=== PATIENT | female | born 1975 | race Caucasian/White ===

== ENCOUNTER 2017-09-13 16:27 | Emergency (ER) | payer BC ==
[2017-09-13] MEDS ORDERED: Metoclopramide IV* 5 MG/ML 2 ML VIAL IV SLOW PU ONE (17:12)
[2017-09-13] MEDS ORDERED: Ketorolac INJ* 30 MG/ML 1 ML VIAL IV PUSH ONE (17:12)
[2017-09-13 19:13] VITALS: BP 97/48
--- NOTE | 2017-09-13 22:48 | ED ---
Ronnie Maynard Nilda scribed for Ketan Dias MD on 09/13/17 at 1717 . Headache - HPI Summary HPI Summary: This patient is a 42 year old M presenting to [facility] accompanied by with a chief complaint of constant severe diffuse headache for the past 2 weeks. On 08/31/17 pt was seen at [place] to be treated for sinus infection. Pt completed Augmentin course for sinus infection but symptoms are still present. The patient rates the pain 10/10 in severity. Symptoms aggravated by sound and movement. Symptoms alleviated by rest. Patient reports seeing stars, nausea, dizziness, and rhinorrhea (clear). Pt has had similar episodes in the past which have been due to sinus infections. NKDA. - History Of Current Complaint Chief Complaint: EDHeadache Stated Complaint: HEADACHE Time Seen by Provider: 09/13/17 16:56 Hx Obtained From: Patient Onset/Duration: Sudden Onset, Started weeks ago, Still Present Currently Pain Is: Current Pain Scale(0-10)= - 10, Severe Timing: Constant Location of Headache: Diffuse Aggravating Factor: Other - sounds and movement Allevating Factors: Rest Associated Signs And Symptoms: Other (Noted In Comments) - seeing stars, nausea , dizziness, and rhinorrhea (clear). - Allergies/Home Medications Allergies/Adverse Reactions: Allergies Allergy/AdvReac Type Severity Reaction Status Date / Time No Known Allergies Allergy Verified 09/13/17 16:33 PMH/Surg Hx/FS Hx/Imm Hx Sensory History: Denies: Hx Contacts or Glasses Opthamlomology History: Denies: Hx Contacts or Glasses EENT History: Denies: Hx Deafness Neurological History: Reports: Hx Migraine Infectious Disease History: No Infectious Disease History: Denies: Traveled Outside the [place] in Last 30 Days - Family History Known Family History: Positive: Other - migraines - Social History Occupation: Employed Full-time Lives: With Family Alcohol Use: Rare Substance Use Type: Reports: None Smoking Status (MU): Never Smoked Tobacco Review of Systems Negative: Fever, Chills Negative: Erythema Positive: Nasal Discharge. Negative: Sore Throat Negative: Chest Pain Negative: Shortness Of Breath, Cough Positive: Nausea. Negative: Abdominal Pain, Vomiting Negative: dysuria, hematuria Negative: Myalgia, Edema Neurological: Other - seeing stars, dizziness Positive: Headache All Other Systems Reviewed And Are Negative: Yes Physical Exam - Summary Physical Exam Summary: Constitutional: Well-developed, Well-nourished, Alert. + Pain Distress Skin: Warm, Dry HENT: Normocephalic; Atraumatic; Maxillary and frontal sinus tenderness Eyes: Conjunctiva normal, photophobic Neck: Musculoskeletal ROM normal neck. (-) JVD, (-) Stridor, (-) Tracheal deviation Cardio: Rhythm regular, rate normal, Heart sounds normal; Intact distal pulses; The pedal pulses are 2+ and symmetric. Radial pulses are 2+ and symmetric. (-) Murmur Pulmonary/Chest wall: Effort normal. (-) Respiratory distress, (-) Wheezes, (-) Rales Abd: Soft, (-) Tenderness, (-) Distension, (-) Guarding, (-) Rebound Musculoskeletal: (-) Edema Lymph: (-) Cervical adenopathy Neuro: Alert, Oriented x3 Psych: Mood and affect Normal Triage Information Reviewed: Yes Vital Signs On Initial Exam: Initial Vitals Temp Pulse Resp BP Pulse Ox 97.2 F 82 20 127/74 97 09/13/17 16:28 09/13/17 16:28 09/13/17 16:28 09/13/17 16:28 09/13/17 16:28 Vital Signs Reviewed: Yes Diagnostics - Vital Signs Vital Signs Temp Pulse Resp BP Pulse Ox 09/13/17 16:28 97.2 F 82 20 127/74 97 - Laboratory Lab Statement: Any lab studies that have been ordered have been reviewed, and results considered in the medical decision making process. Re-Evaluation - Re-Evaluation First Eval Re-Evaluation Time: 18:38 Change: Improved Comment: Pt is symptom free and is agreeable to DC. Headache Course/Dx - Course Assessment/Plan: This patient is a 42 year old M presenting to [facility] accompanied by with a chief complaint of constant severe diffuse headache for the past 2 weeks. On 08/31/17 pt was seen at [place] to be treated for sinus infection. Pt completed Augmentin course for sinus infection but symptoms are still present. The patient rates the pain 10/10 in severity. Symptoms aggravated by sound and movement. Symptoms alleviated by rest. Patient reports seeing stars, nausea, dizziness, and rhinorrhea (clear). Pt has had similar episodes in the past which have been due to sinus infections. NKDA. In the ED course, the patient was given Toradol and Reglan. Pt is symptom free upon Re-eval. The pt is stable and will be D/C with a diagnosis of sinusitis and migraine headache and a prescription for Reglan. Pt was advised to f/u with PCP and purchase Nettipot. Pt understands and is agreeable with plan. - Diagnoses Provider Diagnoses: Sinusitis, Migraine headache Discharge - Discharge Plan Condition: Stable Disposition: HOME Prescriptions: Metoclopramide TAB* [Reglan TAB*] 10 mg PO Q8H PRN #12 tab PRN Reason: Headache Patient Education Materials: Sinusitis (ED), Migraine Headache (ED) Referrals: Juan Alberto Dhillon MD [Primary Care Provider] - (Keep appointment for 09/29. ) Additional Instructions: Follow up with urgent care or move up PCP appointment if symptoms occur again or worsen. Purchase Nettipot. RETURN TO THE EMERGENCY DEPARTMENT FOR CHANGING OR WORSENING SYMPTOMS. The documentation as recorded by the Ronnie nguyen Nilda accurately reflects the service I personally performed and the decisions made by , Ketan Dias MD.
== END 2017-09-13 19:12 | disposition home or self-care (01) ==
LOC: ED 16:27
DX: J32.9 Chronic sinusitis, unspecified (principal); G43.909 Migraine, unspecified, not intractable, without status migrainosus
CPT/HCPCS: 96374; 96375; 99282; J1885; J2765

== ENCOUNTER 2017-11-18 18:20 | Emergency (ER) | payer BC ==
[2017-11-18] MEDS ORDERED: Albuterol/Ipratropium NEB.SOL* Albuterol 2.5 MG/Ipratropium 0.5 MG 3 ML INH ONE ×2 (19:07→20:15)
--- NOTE | 2017-11-18 19:57 | ED ---
Respiratory - HPI Summary HPI Summary: 42 female presents to ED with complaints of cough, body aches, sore throat, and trouble breathing from the congestion that has been ongoing for the past 1-2 days. Patient just returned from a cruise. States she gets colds that move into her lungs very quickly and gets it often. Has been around sick contacts. PMHx includes anxiety, asthma and migraines. Denies chest pain. Admits to productive cough, yellow-mucus like. Denies hemoptysis. Admits to nasal congestion. Tried taking nebulizer at home and prescribed spiriva however has not had relief, although she thinks the medication may have been . No fever/chills, vomiting, abdominal pain or other complaints. - History of Current Complaint Chief Complaint: EDGeneral Stated Complaint: DIFFICULTY BREATHING Time Seen by Provider: 11/18/17 18:45 Hx Obtained From: Patient Onset/Duration: Sudden Onset, Lasting Days, Still Present, Worse Since Timing: Constant Initial Severity: Mild Current Severity: Moderate Pain Intensity: 8 Character: Wheezing, Cough (Productive) Sputum Amount: Scant Sputum Color: Yellow - mucus like Aggravating Factor(s): URI, Deep Breaths Alleviating Factor(s): MDI (Frequency Of Use) - once, Neb. Bronchodilators ( Frequency Of Use) - once Associated Signs and Symptoms: URI, Wheezing, Nasal Congestion, Sinus Discomfort - Allergy/Home Medications Allergies/Adverse Reactions: Allergies Allergy/AdvReac Type Severity Reaction Status Date / Time No Known Allergies Allergy Verified 09/13/17 16:33 PMH/Surg Hx/FS Hx/Imm Hx Endocrine/Hematology History: Denies: Hx Anticoagulant Therapy Cardiovascular History: Denies: Hx Hypertension Respiratory History: Reports: Hx Asthma Sensory History: Denies: Hx Contacts or Glasses, Hx Deafness Opthamlomology History: Denies: Hx Contacts or Glasses Neurological History: Reports: Hx Migraine Psychiatric History: Reports: Hx Anxiety - Surgical History Surgery Procedure, Year, and Place: n/a - Immunization History Immunizations Up to Date: Yes Infectious Disease History: No Infectious Disease History: Reports: Traveled Outside the [place] in Last 30 Days - cruise - Family History Known Family History: Positive: Other - migraines - Social History Alcohol Use: Rare Substance Use Type: Reports: None Smoking Status (MU): Never Smoked Tobacco Review of Systems Constitutional: Negative Positive: Sore Throat, Nasal Discharge Cardiovascular: Negative Positive: Shortness Of Breath, Cough Gastrointestinal: Negative Positive: Myalgia Positive: Headache All Other Systems Reviewed And Are Negative: Yes Physical Exam Triage Information Reviewed: Yes Vital Signs On Initial Exam: Initial Vitals Temp Pulse Resp BP Pulse Ox 98 F 102 20 126/77 100 11/18/17 18:32 0218 18:32 18 18:32 11/18/17 18:32 11/18/17 18:32 slight tachycardia noted, appears anxious improved throughout visit Vital Signs Reviewed: Yes Appearance: Positive: No Pain Distress, Well-Nourished, Ill-Appearing - sounding Skin: Positive: Warm, Skin Color Reflects Adequate Perfusion, Dry. Negative: Cold, Numb, Cyanosis @, Pale, Erythema @ Head/Face: Positive: Normal Head/Face Inspection Eyes: Positive: Conjunctiva Clear ENT: Positive: Hearing grossly normal, Pharyngeal erythema, Nasal congestion, TMs normal, Tonsillar swelling, Uvula midline. Negative: Tonsillar exudate, Sinus tenderness Dental: Positive: Cervical Lymphadenopathy Neck: Positive: Supple, Nontender Respiratory/Lung Sounds: Positive: Clear to Auscultation, Breath Sounds Present. Negative: Rales, Rhonchi, Wheezes Cardiovascular: Positive: Normal, RRR, Pulses are Symmetrical in both Upper and Lower Extremities. Negative: Murmur, Rub Abdomen Description: Positive: Nontender, Soft Bowel Sounds: Positive: Present Musculoskeletal: Positive: Normal, Strength/ROM Intact Neurological: Positive: Normal, Sensory/Motor Intact, Alert, Oriented to Person Place, Time Psychiatric: Positive: Anxious Diagnostics - Vital Signs Vital Signs Temp Pulse Resp BP Pulse Ox 11/18/17 18:32 98 F 102 20 126/77 100 - Laboratory Lab Results: Lab Results 11/18/17 11/18/17 Range/Units 19:09 19:10 Influenza A (Rapid) Negative (Negative) Influenza B (Rapid) Negative (Negative) Group A Strep Rapid Negative (Negative) Lab Statement: Any lab studies that have been ordered have been reviewed, and results considered in the medical decision making process. - Radiology chest Xray Interpretation: No Acute Changes - NO ACTIVE CARDIOPULMONARY DISEASE. Radiology Interpretation Completed By: Radiologist - and myself Re-Evaluation - Re-Evaluation First Eval Re-Evaluation Time: 20:00 Change: Unchanged - little improvement after duoneb Second Eval Re-Evaluation Time: 20:45 Change: Improved - feels better after second duoneb updated on imaging results Disposition - Course Course Of Treatment: influenza and strep obtained and negative. given duoneb with little relief. repeat duoneb. chest xray obtained to rule out pneumonia due to complaints, history and physical exam findings. negative. normal vitals, non hypoxic. appears to be suffering from bronchitis/uri, influenza like. will treat symptomatically and give steroid to help with inflammation. mucinex for congestion, flonase, duoneb, chloraspetic spray, fluids, rest and follow up. Aware of worsening signs and symptoms to watch out for. No other concerns at this time. - Differential Dx - Cardiopulmonary Differential Diagnoses - Cardiopulmonary: Asthma, Bronchitis, Influenza, Other - upper respiratory infection - Diagnoses Provider Diagnoses: Bronchitis Discharge - Discharge Plan Condition: Stable Disposition: HOME Prescriptions: Albuterol 2.5MG/3ML (0.083%)* [Ventolin 2.5 MG/3 ML NEB.STARR*] 2.5 mg INH Q4H PRN #32 [email or web address] PRN Reason: Sob/Wheezing Albuterol HFA INHALER* [Ventolin HFA Inhaler*] 1 puff INH Q4H PRN #1 mdi PRN Reason: Sob/Wheezing Fluticasone NASAL SPRAY 50MCG* [Flonase NASAL SPRAY 50MCG*] 2 spray BOTH NARES DAILY #1 btl predniSONE TAB* [Deltasone TAB*] 20 mg PO DAILY #5 tab Patient Education Materials: Acute Bronchitis (ED), Wheezing (ED) Referrals: Juan Alberto Dhillon MD [Primary Care Provider] - Additional Instructions: Take prescribed medication as directed. Continue use of nebulizer and inhaler as illness appears to be exacerbating asthma. Mucinex over the counter for decongestant. Saline rinses, salt water gargles and chloraseptic spray to help with sore throat. Increase fluid intake, get plenty of rest. Any new or worsening symptoms or if symptoms do not improve please seek medical attention promptly as discussed. Follow up with PCP.
--- NOTE | 2017-11-18 20:46 | RAD ---
HISTORY: Difficulty breathing COMPARISONS: None VIEWS: 4: Frontal dual-energy and lateral views of the chest. FINDINGS: CARDIOMEDIASTINAL SILHOUETTE: The cardiomediastinal silhouette is normal. HÉCTOR: The héctor are normal. PLEURA: The costophrenic angles are sharp. No pleural abnormalities are noted. LUNG PARENCHYMA: The lungs are clear. ABDOMEN: The upper abdomen is clear. There is no subphrenic gas. BONES AND SOFT TISSUES: No bone or soft tissue abnormalities are noted. OTHER: None. IMPRESSION: NO ACTIVE CARDIOPULMONARY DISEASE.
[2017-11-18 20:58] VITALS: BP 121/69
== END 2017-11-18 20:57 | disposition home or self-care (01) ==
LOC: ED 18:20
DX: J40 Bronchitis, not specified as acute or chronic (principal)
CPT/HCPCS: 71046; 87502; 87651; 94640; 99282; A9270-GY

== ENCOUNTER 2018-05-03 12:38 | Emergency (ER) | payer BC ==
[2018-05-03 13:15] VITALS: BP 142/94
[2018-05-03] MEDS ORDERED: traMADol TAB* 50 MG PO ONE (13:45)
--- NOTE | 2018-05-03 13:54 | UC ---
Lower Extremity/Ankle HPI - HPI Summary HPI Summary: ONSET OF PAIN ON THE TOP OF HER LEFT FOOT 4 DAYS AGO. IT IS NOW MOSTLY ALONG THE LATERAL ASPECT OVERLYING THE FIFTH METATARSAL. SHE DENIES ANY INJURY OR TRAUMA. HIS UNABLE TO WEIGHT-BEAR WITHOUT SIGNIFICANT PAIN AND ARRIVES ON CRUTCHES. 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 - History of Current Complaint Chief Complaint: UCLowerExtremity Stated Complaint: FOOT PAIN Time Seen by Provider: 05/03/18 13:11 Hx Obtained From: Patient Onset/Duration: Gradual Onset, Lasting Days, Still Present Severity Initially: Moderate Severity Currently: Moderate Pain Intensity: 10 - 10/10 WITH PALPATION Pain Scale Used: 0-10 Numeric Aggravating Factor(s): Standing, Ambulation Alleviating Factor(s): Rest Able to Bear Weight: Yes - WITH A LOT OF PAIN - Allergies/Home Medications Allergies/Adverse Reactions: Allergies Allergy/AdvReac Type Severity Reaction Status Date / Time No Known Allergies Allergy Verified 05/03/18 13:05 Home Medications: Home Medications Fluticasone NASAL SPRAY 50MCG* [Flonase NASAL SPRAY 50MCG*] 2 spray BOTH NARES DAILY PRN 05/03/18 [History Confirmed 05/03/18] Ibuprofen 400 mg PO Q6HR 05/03/18 [History Confirmed 05/03/18] Topiramate TAB(*) [Topamax 25 MG tab] 25 mg PO BID 05/03/18 [History Confirmed 05/03/18] PMH/Surg Hx/FS Hx/Imm Hx Respiratory History: Asthma Other History Of: Negative For: Anticoagulant Therapy - Surgical History Surgical History: Yes Surgery Procedure, Year, and Place: hysterectomy - Family History Known Family History: Positive: Other - migraines - Social History Alcohol Use: Rare Substance Use Type: None Smoking Status (MU): Never Smoked Tobacco Review of Systems Constitutional: Negative Skin: Other - SWELLING LEFT FOOT LATERALLY Respiratory: Negative Cardiovascular: Negative Gastrointestinal: Negative Musculoskeletal: Decreased ROM, Edema All Other Systems Reviewed And Are Negative: Yes Physical Exam Triage Information Reviewed: Yes Appearance: Well-Appearing, Well-Nourished, Pain Distress - WITH PALPATION OF LEFT FOOT Vital Signs: Initial Vital Signs Temp 97.5 F 05/03/18 13:08 Pulse 87 05/03/18 13:08 Resp 20 05/03/18 13:08 BP 142/94 05/03/18 13:08 Pulse Ox 97 05/03/18 13:08 Vital Signs Reviewed: Yes Eyes: Positive: Conjunctiva Clear ENT: Positive: Hearing grossly normal Neck: Positive: Supple Respiratory: Positive: No respiratory distress, No accessory muscle use Cardiovascular: Positive: Pulses Normal Abdomen Description: Positive: Soft Musculoskeletal: Positive: ROM Limited @ - LEFT FOOT/ANKLE, Edema @ - LEFT FOOT LATERALLY, Other: - EXTREMELY TENDER SOFT TISSUES OVERLYING LEFT 5TH METATARSAL. NOT WARM OR RED Neurological: Positive: Alert Psychological: Positive: Age Appropriate Behavior Skin: Negative: rashes Diagnostics - Radiology LEFT FOOT XRAY Xray Interpretation: Positive (See Comments) - SOFT TISSUE SWELLING, NO FRACTURE IS SEEN. Radiology Interpretation Completed By: Radiologist No standard instances Xray Interpretation: No Acute Changes - FOOT XRAY Lower Extremity Course/Dx - Differential Dx/Diagnosis Provider Diagnoses: LEFT LATERAL FOOT PAIN/SWELLING Discharge - Sign-Out/Discharge Documenting (check all that apply): Patient Departure - Discharge Plan Condition: Stable Disposition: HOME Prescriptions: traMADol TAB* [Ultram*] 50 mg PO Q6HR PRN #20 tab MDD 4 PRN Reason: Pain Patient Education Materials: Foot Sprain (ED) Forms: *Work Release Referrals: Juan Alberto Dhillon MD [Primary Care Provider] - If Needed Ewelina Correa MD [Medical Doctor] - Additional Instructions: UNCLEAR ETIOLOGY OF YOUR FOOT PAIN TODAY. X-RAY TODAY SHOWS SOFT TISSUE SWELLING BUT IS OTHERWISE UNREMARKABLE. WE WILL GIVE POSTOP SHOE TO HELP WITH MOBILITY. YOU MAY USE YOUR CRUTCHES NEEDED. REST, ELEVATE, ICE. OTC IBUPROFEN NEEDED. WILL GIVE TRAMADOL FOR BREAKTHROUGH. FOLLOW-UP WITH ORTHOPEDICS OR PODIATRY IF YOUR SYMPTOMS DO NOT RESOLVE IN THE NEXT WEEK OR SO. PODIATRY IN [facility] Dr. Saud Lyons [address] [place] Dr. Giovany Parker. Please call his office at [phone] to make an appointment to be seen Dr. Dez Meier. Please call his office at [phone] to make an appointment to be seen - Billing Disposition and Condition Condition: STABLE Disposition: Home
--- NOTE | 2018-05-03 14:08 | RAD ---
INDICATION: Left fifth metatarsal pain. TECHNIQUE: 3 views of the left foot were obtained. FINDINGS: There is lateral soft tissue swelling adjacent to the fifth metatarsal. No fracture is seen. The bones are in normal alignment. Joint spaces appear maintained. IMPRESSION: SOFT TISSUE SWELLING, NO FRACTURE IS SEEN.
== END 2018-05-03 14:42 | disposition home or self-care (01) ==
LOC: UCEAST 12:38
DX: M79.672 Pain in left foot (principal); J45.909 Unspecified asthma, uncomplicated; M79.89 Other specified soft tissue disorders
CPT/HCPCS: 99212; A9270-GY; G0463